=== PATIENT | male | born 1950 | race Asian ===

== ENCOUNTER 2018-04-22 08:55 | Emergency (ER) | payer OTHER ==
[~2018-04-22] VITALS: Ht 167.6 cm; Wt 78.0 kg
[2018-04-22 09:08] VITALS: Ht 167.6 cm; Wt 78.0 kg
[2018-04-22 10:27] LABS: CARBON DIOXIDE 31.9 mmol/L (21-32); CHLORIDE SERUM 97 mmol/L (98-107); CREATININE SERUM 1.1 mg/dL (0.7-1.3); GFR1 > 60 mL/min; GLUCOSE SERUM 175 mg/dL (74-106); POTASSIUM SERUM 3.3 mmol/L (3.5-5.1); SODIUM SERUM 136 mmol/L (136-145)
[2018-04-22 10:32] LABS: ALKALINE PHOSPHATASE 64 U/L (46-116); ALT/SGPT 34 U/L (16-63); AMYLASE 59 U/L (25-115); AST/SGOT 23 U/L (15-37); BILIRUBIN TOTAL 0.4 mg/dL (0.20-1.00); LIPASE 278 IU/L (73-393); TOTAL PROTEIN, SERUM 7.6 g/dL (6.4-8.2)
[2018-04-22 10:33] LABS: PLATELET COUNT 185 x10^3mcL (130-400); RED CELL DISTRIBUTION WIDTH 13.2 % (11.5-14.5)
[2018-04-22 10:35] LABS: ALBUMIN 3.1 g/dL (3.4-5.0)
[2018-04-22 11:31] LABS: ATYPICAL LYMPH 6 %; BAND NEUTROPHIL 3 % (0-10); BASOPHIL 0 % (0-2); MONOCYTE 22 % (0-7); SEGMENTED NEUTROPHILS 55 % (37-75)
[2018-04-22 11:33] LABS: PLATELET MORPHOLOGY PLATELETS DECREASED; rbc morphology (normal/abnorm) ABNORMAL (NORMAL)
[2018-04-22 12:43] VITALS: BP 132/71
== END 2018-04-22 12:43 | disposition home or self-care (01) ==
LOC: ED 08:55
PROVIDERS: Emergency Medicine
DX: K52.9 Noninfective gastroenteritis and colitis, unspecified (principal); K64.8 Other hemorrhoids; I10 Essential (primary) hypertension
CPT/HCPCS: J7030